=== PATIENT | female | born 1995 | race Two or more races ===

== ENCOUNTER 2025-02-06 11:57 | Emergency (ER) | payer OTHER ==
[~2025-02-06] VITALS: Ht 160 cm; Wt 64.9 kg
[2025-02-06 13:00] LABS: BASO % 0.3 % (0.1-1.2); EOS # 0.08 (0.04-0.54); EOS % 0.8 % (0.7-7.0); LYMPH # 0.48 (1.18-3.74); LYMPH % 5.0 % (19.3-53.1); MEAN PLATELET VOLUME 9.60 fl (9.4-12.4); MONO # 0.59 (0.24-0.82); MONO % 6.1 % (4.7-12.5); NEUT # 8.47 (1.56-6.13); NEUT % 87.5 % (34.0-71.1); RED CELL DISTRIBUTION WIDTH 12.4 % (11.6-14.4)
[2025-02-06 13:36] LABS: URINE APPEARANCE Clear; URINE BILIRRUBIN Negative (NEGATIVE); URINE BLOOD Negative; URINE COLOR Yellow; URINE GLUCOSE Negative (NEGATIVE); URINE KETONE Trace (NEGATIVE); URINE LEUKOCYTE Negative; URINE NITRATE Negative; URINE PROTEIN 30 (NEGATIVE); URINE UROBILINOGEN 1.0 E.U./dl
[2025-02-06 13:37] LABS: URINE EPITHELIAL CELLS 19.5 uL (0.0-38.8); URINE RBC 6.1 uL (0.0-20.8); URINE WBC 16.7 uL (0.0-23.2)
[2025-02-06 13:43] LABS: ALT/SGPT 17.0 U/L (12-78); AST/SGOT 15.0 U/L (15-37); BILIRUBIN TOTAL 0.52 mg/dL (0.3-1.2); BUN CREA RATIO 13.0 (7.0-25.0); COVID-19 AG NEGATIVE (NEGATIVE); CREATININE SERUM 0.83 mg/dL (0.55-1.02); GFR 81.27; GLOBULINA 3.8 G/DL (2.4-3.5); GLUCOSE FASTING 107.0 mg/dL (65-100); OSMOLALITY SERUM 272.0 MOSM/KG (275-295)
[2025-02-06 14:54] LABS: URINE BACTERIA > 9821.5 uL (0.0-1933); URINE CAST 0.00 uL (0.0-1.40)
== END 2025-02-06 15:02 | disposition home or self-care (01) ==
LOC: ER 11:57
PROVIDERS: General Practice
DX: J10.1 Influenza due to other identified influenza virus with other respiratory manifestations (principal); Z20.822 Contact with and (suspected) exposure to COVID-19